=== PATIENT | male | born 2005 | race Two or more races ===

== ENCOUNTER 2024-10-09 15:35 | Inpatient (IN) | payer MEDICAID, OTHER ==
[~2024-10-09] VITALS: Ht 182.9 cm; Wt 75.1 kg
[2024-10-09 16:25] VITALS: PULSE 65; RESP 19; O2SAT 98
[2024-10-09 16:35] LABS: Hematocrit 45.8 % (41.0-53.0); Hemoglobin 15.5 g/dL (13.5-17.5); Mean Corpuscular Hemoglobin 29.6 pg (28.0-32.0); Mean Corpuscular Volume 87.3 fL (80.0-100.0); Nucleated Red Blood Cells % 0.0 %
[2024-10-09] MEDS: SODIUM CHLORIDE 0.9% 2,000 ML IV ONE (16:36)
[2024-10-09 16:38] LABS: Chloride 104 mmol/L (98-107); Potassium 3.9 mmol/L (3.5-5.1); Sodium 141 mmol/L (136-145)
[2024-10-09 16:39] LABS: Anion Gap 9 (5-15); Carbon Dioxide 28 mmol/L (20-31)
[2024-10-09 16:40] LABS: Calcium 9.2 mg/dL (8.7-10.4)
[2024-10-09 16:45] LABS: BUN/Creatinine Ratio 10.2 (10.0-20.0); Blood Urea Nitrogen 11 mg/dL (9-23); Glucose 101 mg/dL (74-106)
--- NOTE | 2024-10-09 17:27 | DVH ---
EXAM: CT HEAD WITHOUT CONTRAST INDICATION: s/p tonic clonic sz, now new focal absence sz TECHNIQUE: CT of the head without intravenous contrast. Radiation Dose Information: CT Dose: CTDI volume is 52.61 mGy. Dose-length product is 863.9 mGy*cm The dose indicators for CT are the volume Computed Tomography (CT) Dose Index (CTDIvol) and the Dose Length Product (DLP), and are measured in units of mGy and mGy-cm, respectively. These indicators are not patient dose, but values generated from the CT scanner acquisition factors. The report includes radiation exposure data for exposures received during this examination. COMPARISON: None FINDINGS: There is no evidence of acute intracranial hemorrhage, extra-axial collection, mass effect, midline s hift, herniation or hydrocephalus. The ventricles, sulci and cisterns are age appropriate. The covarrubias-white differentiation is intact. Patchy periventricular and subcortical white matter hypoattenuation is nonspecific but may be related to small vessel ischemic disease. The visualized paranasal sinuses and mastoid air cells are clear. The surrounding soft tissues and osseous structures are unremarkable. IMPRESSION: 1. No acute intracranial abnormality.
--- NOTE | 2024-10-09 17:31 | ED.PDOC ---
HPI (NEURO) HPI Comments 18 y/o M with history of tonic clonic seizures on Keppra, brought in by mother for c/c multiple seizure episodes. Patient's mother states over the past 2 days the patient began having episodes of staring in one direction during which time he is unresponsive. These episodes last less than a minute. Patient does not recall the episodes. This has happened several times over the past 2 days. The patient did have a tonic-clonic seizure yesterday morning, which is typical of his prior seizure activity. He states he has been compliant with his Keppra. He only complains of fatigue and a mild headache. He denies fever, recent illness, chest pain, vision changes or focal weakness. Patient was noted to have what appeared to be a brief absence seizure shortly after arrival in the ED. Chief Complaint: Seizure Time Seen by MD: 17:20 Reviewed Notes: Nurses Notes, Route Sales Representative Notes, Medications, Allergies Information Source: Patient, Emergency Med Personnel Mode of Arrival: Ambulatory Past Medical History PAST MEDICAL HISTORY: Seizures Surgical History: Denies all surgeries Social History Smoker: Non-Smoker Alcohol: Denies ETOH Use Drugs: Denies Drug Use Lives In: Home All Other Systems: Reviewed and Negative (Comprehensive systems review obtained and negative except for what is stated in the HPI.) Physical Exam General Appearance: No Apparent Distress HEENT: Other (Pupils and face symmetric. Moist mucous membranes.) Neck: Full Range of Motion, Normal Inspection Respiratory: Lungs Clear, No Accessory Muscle Use, No Respiratory Distress, Normal Breath Sounds Cardiovascular: No Edema, No JVD, Regular Rate/Rhythm Breast Exam: Deferred Gastrointestinal: Non Tender, Soft Genitalia: Deferred Pelvic: Deferred Rectal: Deferred Extremities: Normal inspection, Normal range of motion, Non-tender, No pedal edema Neurologic: Alert (Oriented x4), Normal Affect, Normal Mood, Other (No focal deficit) Cerebellar Function: NOT DONE Reflexes: NOT DONE Skin: Dry, Normal Color, Warm Lymphatic: NOT DONE Was a procedure done? Was a procedure done?: No Differential Diagnosis (SZ) Seizure: CVA/TIA, Hypocalcemia, Hypoglycemia, Hyponatremia, Idiopathic, Epile psy-Break Through, Epilepsy-Status Headache: Migraine, Epidural Hemorrhage, Intracerebral Hemorrhage, Subarachnoid Hemorrhage, Subdural Hemorrhage, Mass Lesion X-Ray, Labs, Meds, VS Vital Signs Date Time Temp Pulse Resp B/P (MAP) Pulse Ox O2 Delivery O2 Flow Rate FiO2 10/09/24 20:07 98.8 63 13 117/56 (76) 97 98.8 10/09/24 20:07 63 13 97 Room Air* 0 21 10/09/24 20:00 60 10/09/24 18:00 98.6 62 13 116/63 (80) 99 98.6 10/09/24 16:25 65 19 98 Room Air* 0 21 10/09/24 16:25 98.8 65 19 117/62 (80) 98 98.8 10/09/24 15:38 98.2 72 18 107/55 98 98.2 Lab Test 10/09/24 17:38 10/09/24 16:30 10/09/24 16:20 Range/Units Troponin I High Sensitivity 4 < 3 L </=54 ng/L Urine Color Light-yellow Yellow Urine Clarity Clear Clear Urine pH 6.5 5.0-9.0 Urine Specific [place] 1.022 1.001-1.035 Urine Protein Negative Negative Urine Ketones Negative Negative Urine Blood Negative Negative /uL Urine Nitrite Negative Negative Urine Bilirubin Negative Negative Urine Urobilinogen Normal Negative mg/dL Urine Leukocyte Esterase Negative Negative /uL Urine RBC None seen 0 - 3 /hpf Urine Microscopic WBC < 1 0-3 /HPF Urine Squamous Epithelial Cells None seen <5 /hpf Urine Bacteria None seen None Seen /hpf Urine Mucus Few None Seen Urine Glucose Normal Normal mg/dL White Blood Count 8.0 4.4-10.8 10^3/uL Red Blood Count 5.25 4.5-5.90 10^6/uL Hemoglobin 15.5 13.5-17.5 g/dL Hematocrit 45.8 41.0-53.0 % Mean Corpuscular Volume 87.3 80.0-100.0 fL Mean Corpuscular Hemoglobin 29.6 28.0-32.0 pg Mean Corpuscular Hemoglobin Concent 33.9 32.0-36.0 g/dL Red Cell Distribution Width 12.6 11.8-14.3 % Platelet Count 262 140-450 10^3/uL Mean Platelet Volume 8.2 6.9-10.8 fL Neutrophils (%) (Auto) 60.4 37.0-80.0 % Lymphocytes (%) (Auto) 30.5 10.0-50.0 % Monocytes (%) (Auto) 7.0 0.0-12.0 % Eosinophils (%) (Auto) 1.6 0.0-7.0 % Basophils (%) (Auto) 0.5 0.0-2.0 % Neutrophils # (Auto) 4.8 1.6-8.6 10 ^3/uL Lymphocytes # (Auto) 2.4 0.4-5.4 10 ^3/uL Monocytes # (Auto) 0.6 0-1.3 10 ^3/uL Eosinophils # (Auto) 0.1 0-0.8 10 ^3/uL Basophils # (Auto) 0 0-0.2 10 ^3/uL Nucleated Red Blood Cells 0.0 % Sodium Level 141 136-145 mmol/L Potassium Level 3.9 3.5-5.1 mmol/L Chloride Level 104 98-107 mmol/L Carbon Dioxide Level 28 20-31 mmol/L Anion Gap 9 5-15 Blood Urea Nitrogen 11 9-23 mg/dL Creatinine 1.08 0.700-1.30 mg/dL Glomerular Filtration Rate Calc 101 >90 mL/min BUN/Creatinine Ratio 10.2 10.0-20.0 Serum Glucose 101 74-106 mg/dL Calcium Level 9.2 8.7-10.4 mg/dL Levetiracetam Level Pending Current Medications Medications (Trade) Dose Ordered Sig/Lindy Route Start Time Stop Time Status Last Admin Sodium Chloride 2,000 ml @ 1,000 mls/hr Q2H ONCE IV 10/09/24 16:00 10/09/24 17:59 DC 10/09/24 16:36 Lorazepam (Ativan Inj) 1 mg ONCE ONCE IV 10/09/24 17:30 10/09/24 17:31 DC 10/09/24 17:57 [place] [id number] Ph: [phone] DIAGNOSTIC IMAGING Diagnostic Imaging Report : [id number] Signed PATIENT: EDOUARD GREENE ACCT: [id number] UNIT: [id number] : 2005 LOC: ER ROOM / BED: / AGE / SEX: 18 / M ADM STATUS: REG ER SERVICE [id number] ORDERING PHYSICIAN: RADHA HAMEED MD PROCEDURE(s): HWOCT - HEAD WITHOUT CONTRAST REASON: s/p tonic clonic sz, now new focal absence sz ORDER NUMBER(s): [id number], ACCESSION NUMBER(s): [id number] EXAM: CT HEAD WITHOUT CONTRAST INDICATION: s/p tonic clonic sz, now new focal absence sz TECHNIQUE: CT of the head without intravenous contrast. Radiation Dose Information: CT Dose: CTDI volume is 52.61 mGy. Dose-length product is 863.9 mGy*cm The dose indicators for CT are the volume Computed Tomography (CT) Dose Index (CTDIvol) and the Dose Length Product (DLP), and are measured in units of mGy and mGy-cm, respectively. These indicators are not patient dose, but values generated from the CT scanner acquisition factors. The report includes radiation exposure data for exposures received during this examination. COMPARISON: None FINDINGS: There is no evidence of acute intracranial hemorrhage, extra-axial collection, mass effect, midline shift, herniation or hydrocephalus. The ventricles, sulci and cisterns are age appropriate. The covarrubias-white differentiation is intact. Patchy periventricular and subcortical white matter hypoattenuation is nonspecific but may be related to small vessel ischemic disease. The visualized paranasal sinuses and mastoid air cells are clear. The surrounding soft tissues and osseous structures are unremarkable. IMPRESSION: 1. No acute intracranial abnormality. ATED BY: JAVED LANGLEY Jr., DO DICTATED DATE/TIME: 10/09/241724 SIGNED BY: JAVED LANGLEY Jr., SIGNED DATE/TIME: 10/09/241724 CC: X-Ray, Labs, Meds, VS Comment 18 y/o M with history of tonic clonic seizures on Keppra, brought in by mother for c/c multiple seizure episodes, including multiple episodes consistent with absence seizures, and one tonic-clonic seizure. Vitals remarkable for BP 107/55 Exam unremarkable Rhythm strip independently interpreted by me: Sinus rhythm, rate 82, no ectopy. CT head unremarkable CBC, basic metabolic panel, UA and troponins negative. Levetiracetam level pending Patient treated with the following in the ED: L 0.9 normal saline IV bolus, Ativan 1 mg IV On re-evaluation, patient is resting comfortably and neurologically intact. There has been no further seizure activity. Plan is to admit the patient for brain MRI or EEG and Neurology evaluation. Time of 1ST Reevaluation: 17:50 Reevaluation 1ST: Unchanged Patient Education/Counseling: Diagnosis, Treatment Family Education/Counseling: Diagnosis, Treatment Departure 1 Departure Time of Disposition: 20:54 Impression: Primary Impression: Recurrent seizures Disposition: ADMITTED INPATIENT Admit to: Tele Condition: Guarded Critical Care Note Critical Care Time?: No Stability Stability form required: No Heart Score Heart Score: Heart Score Response (Comments) Value History N/A 0 EKG N/A 0 Age N/A 0 Risk Factors N/A 0 Troponin N/A 0 Total 0 I personally scribed for RADHA HAMEED MD ([email or web address]) on 10/09/24 at 17:31. Electronically submitted by Kasi Lozano ([email or web address]). I personally scribed for RADHA HAMEED MD ([email or web address]) on 10/09/24 at 17:43. Electronically submitted by Kasi Lozano ([email or web address]). RADHA HAMEED MD Oct 09, 2024 17:31
[2024-10-09] MEDS: LORazepam 2MG/ML-1ML VIAL IV ONE (17:57)
[2024-10-09 18:56] LABS: Urine Protein, UAD Negative (Negative)
[2024-10-09 20:07] VITALS: PULSE 63; RESP 13; O2SAT 97
--- NOTE | 2024-10-09 21:14 | DVHHPRES ---
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 Per mother, at bedside, patient has been experiencing blank staring episodes for the past 2 days, innumerable, lasting for a minute or 2 only, preceded by blurry vision. Patient is not responsive during these episodes, eyes are open but starting, patient has never had these episodes in the past. He has been taking Keppra for his epilepsy disorder. Patient follows a neurologist at [facility], last seen 2 months back. Patient appears confused, likely postictal state, he is having brief episodes of staring in ER per mom and RN. Ativan IV was given in the ER. Patient reports diarrhea and some urinary discomfort but appears confused and UA negative. Per mom patient has not been sick or travel recently or had any sick contacts. He has been home for the past few days. Family recently moved to [place] and would like to establish care here. Past medical history:generalized tonic-clonic seizures/epileptic disorder for the past 5 years on Keppra Past surgical history: None Home medications: Keppra 1000 mg Neurologist, follows [place] Social history: Denies smoking/drinking/drug use, lives with mom. Review of Systems Review of Systems Patient appears confused, reports blurry vision, diarrhea, urinary discomfort Allergies: Coded Allergies: NO KNOWN ALLERGIES (Unverified , 10/09/24) Exam Vital Signs Vital Signs Date Time Temp Pulse Resp B/P (MAP) Pulse Ox O2 Delivery O2 Flow Rate FiO2 10/09/24 20:07 98.8 63 13 117/56 (76) 97 98.8 10/09/24 20:07 Room Air* 0 21 Exam Young adolescent male patient lying comfortably in the bed in ER, no acute distress, following commands but appears confused General: Well-built, afebrile, palor, mucosae are moist Cardiovascular: Regular S1 and S2. No murmurs, gallops or rubs. No JVD elevation. No pedal edema Respiratory: Normal B/L air entry on room air. Clear lung sounds on ausculta tion Abdomen: Soft, nontender, nondistended, normoactive bowel sounds, no rebound tenderness, no organomegaly, no masses Genitourinary: Deferred MSK/skin: Mobilizes 4 limbs. Skin is dry and warm Neurological: Equal strength in bilateral upper extremity, and lower extremity, no facial asymmetry seen. Vision intact. Sensations intact. Psych/Mental Status: A/Ox2, oriented to name and situation but not to place Labs/Xrays Labs Test 10/09/24 17:38 10/09/24 16:30 10/09/24 16:20 Range/Units Troponin I High Sensitivity 4 </=54 ng/L Urine Color Light-yellow Yellow Urine Clarity Clear Clear Urine pH 6.5 5.0-9.0 Urine Specific [place] 1.022 1.001-1.035 Urine Protein Negative Negative Urine Ketones Negative Negative Urine Blood Negative Negative /uL Urine Nitrite Negative Negative Urine Bilirubin Negative Negative Urine Urobilinogen Normal Negative mg/dL Urine Leukocyte Esterase Negative Negative /uL Urine RBC None seen 0 - 3 /hpf Urine Microscopic WBC < 1 0-3 /HPF Urine Squamous Epithelial Cells None seen <5 /hpf Urine Bacteria None seen None Seen /hpf Urine Mucus Few None Seen Urine Glucose Normal Normal mg/dL White Blood Count 8.0 4.4-10.8 10^3/uL Red Blood Count 5.25 4.5-5.90 10^6/uL Hemoglobin 15.5 13.5-17.5 g/dL Hematocrit 45.8 41.0-53.0 % Mean Corpuscular Volume 87.3 80.0-100.0 fL Mean Corpuscular Hemoglobin 29.6 28.0-32.0 pg Mean Corpuscular Hemoglobin Concent 33.9 32.0-36.0 g/dL Red Cell Distribution Width 12.6 11.8-14.3 % Platelet Count 262 140-450 10^3/uL Mean Platelet Volume 8.2 6.9-10.8 fL Neutrophils (%) (Auto) 60.4 37.0-80.0 % Lymphocytes (%) (Auto) 30.5 10.0-50.0 % Monocytes (%) (Auto) 7.0 0.0-12.0 % Eosinophils (%) (Auto) 1.6 0.0-7.0 % Basophils (%) (Auto) 0.5 0.0-2.0 % Neutrophils # (Auto) 4.8 1.6-8.6 10 ^3/uL Lymphocytes # (Auto) 2.4 0.4-5.4 10 ^3/uL Monocytes # (Auto) 0.6 0-1.3 10 ^3/uL Eosinophils # (Auto) 0.1 0-0.8 10 ^3/uL Basophils # (Auto) 0 0-0.2 10 ^3/uL Nucleated Red Blood Cells 0.0 % Sodium Level 141 136-145 mmol/L Potassium Level 3.9 3.5-5.1 mmol/L Chloride Level 104 98-107 mmol/L Carbon Dioxide Level 28 20-31 mmol/L Anion Gap 9 5-15 Blood Urea Nitrogen 11 9-23 mg/dL Creatinine 1.08 0.700-1.30 mg/dL Glomerular Filtration Rate Calc 101 >90 mL/min BUN/Creatinine Ratio 10.2 10.0-20.0 Serum Glucose 101 74-106 mg/dL Calcium Level 9.2 8.7-10.4 mg/dL SEPSIS Sepsis Screen Date sepsis recognized/suspect: Oct 09, 2024 Time Sepsis recognized/suspect: 2008 Recent Procedure: No On Antibiotic Therapy: No Respiratory Rate >20: No Heart Rate >90: No Temp<36 C (96.8 F) or >38.3 C: No SBP <90 or MAP <65 mmHG: No New Acute Mental Status Change: No Is the patient on CPAP, BIPAP,: No Physician Orders Electrocardigram (10/09/24 16:00) Levetiracetam (Keppra) (10/09/24 16:00) Seizure Precautions (10/09/24 ) Head Without Contrast (10/09/24 16:41) Electrocardigram (10/09/24 21:01) Electrocardigram (10/09/24 22:01) Electrocardigram (10/10/24 00:01) * Neurology Consult (10/09/24 21:12) Vital Signs Date Time Temp Pulse Resp B/P (MAP) Pulse Ox O2 Delivery O2 Flow Rate FiO2 10/09/24 20:07 98.8 63 13 117/56 (76) 97 98.8 10/09/24 20:07 63 13 97 Room Air* 0 21 10/09/24 20:00 60 10/09/24 18:00 98.6 62 13 116/63 (80) 99 98.6 10/09/24 16:25 65 19 98 Room Air* 0 21 10/09/24 16:25 98.8 65 19 117/62 (80) 98 98.8 10/09/24 15:38 98.2 72 18 107/55 98 98.2 Laboratory Tests Test 10/09/24 16:20 White Blood Count 8.0 10^3/uL (4.4-10.8) Medications Medications Dose Ordered Sig/Lindy Route Start Time Stop Time Status Last Admin Dose Admin Lorazepam 1 mg ONCE ONCE IV 10/09/24 17:30 10/09/24 17:31 DC 10/09/24 17:57 1 MG Sodium Chloride 2,000 ml @ 1,000 mls/hr Q2H ONCE IV 10/09/24 16:00 10/09/24 17:59 DC 10/09/24 16:36 1,000 MLS/HR Assessment/Plan Assessment/Plan Acute onset blank stares ? Atypical Absence seizures-new onset History of generalized tonic-clonic seizures on Keppra -[id number] ?? 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 Flores Plan discussed with: Other (Mother at bedside) My Orders Orders - DENITA RASHEED Procedure Category Date Status Time Electrocardigram EKG 10/09/24 Logged 21:01 Electrocardigram EKG 10/09/24 Logged 22:01 Electrocardigram EKG 10/10/24 Logged 00:01 * Neurology Consult CONS 10/09/24 Transmitted 21:12 Date of Service: Oct 09, 2024 Billing Provider: DELORES FLORES MD Common Visit Codes: [id number] INP/OBS CARE (HIGH) DENITA RASHEED Oct 09, 2024 21:14
[2024-10-09 21:32] LABS: Alanine Aminotransferase 15 U/L (7-40); Albumin 4.3 g/dL (3.2-4.8); Alkaline Phosphatase 89 U/L (46-116); Total Protein 6.6 g/dL (5.7-8.2)
[2024-10-09 21:34] LABS: Bilirubin, Total 0.3 mg/dL (0.2-1.0)
[2024-10-09 21:48] LABS: Bilirubin, Direct < 0.1 mg/dL (<0.3)
[2024-10-09 21:55] LABS: Amphetamine Screen, Urine Neg (NEGATIVE); Barbiturate Scree,Urine Neg (NEGATIVE); Benzodiazephine Screen, Urine Neg (NEGATIVE); Cocaine Screen, Urine Neg (NEGATIVE)
[2024-10-09 21:56] LABS: Magnesium 1.9 mg/dL (1.6-2.6)
[2024-10-09 22:00] LABS: COVID19 ANTIGEN SOFIA FIA NEGATIVE (NEGATIVE)
[2024-10-09 22:01] LABS: Cannabinoid Screen, Urine Neg (NEGATIVE); Opiate Scree,Urine Neg (NEGATIVE); Phencyclidine Screen, Urine Neg (NEGATIVE)
--- NOTE | 2024-10-09 22:57 | DVHINCON2 ---
Date of service: Oct 09, [address] Mary Reason for Consultation Absence seizure, new onset History of Present Illness Mr. Chambers is a 18 years old right-handed gentleman otherwise healthy, he was brought to the [facility] on 10/09/24 with a chief complaint of seizure activity. At this time, he is alert and fully oriented, but he has no recollection about his seizure symptoms, the history obtained from his mother who was in the room with him Partial complex seizure Onset: 10/08/2024 Duration: 20-30 seconds Frequency: Numerous times daily Cause of condition: Unknown Symptoms: A witnessed a typical spell, in that he suddenly stopped responding to his surroundings, eyes and head turned to the right side, the event was about 20-30 seconds, he came out not remember what we were talking about, but in the few sec, the able to resume normal conversation. 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 since beginning of 09/2024 due to side effects Aura: Blurred vision, flashing lights Grand mal seizure Onset: 2019 Frequency: One day/month, but he may have several in the role Duration: Possible cause the condition: Unknown Symptoms: Episodic event where he has realized convulsion, unconsciousness, times associated with oral trauma, incontinence. More than 95% event happened when he is asleep Previous evaluation: He has seen neurologist, he had EEG and MRI brain scan previously Current treatment: Keppra 1000 mg q.d. Previous treatment: Keppra 2000 mg q.d. caused mood problems Lamotrigine, Vimpat, topiramate, Depakote, Dilantin did not help UDS, 10/06/2024: Negative Plasma alcohol, 10/09/2024: <3 Keppra, 10/06/2024: Urinalysis, 10/06/2024: Unremarkable CBC, 10/09/2024: Unremarkable CMP, 10/09/2024: Unremarkable CT head, 09/18/2024: No acute intracranial abnormality Past Medical History No major medical problems Past Surgical History No surgeries Family History Mother reports no major medical problems Social History He has no history of tobacco smoking, drug or alcohol abuse. He does not drive Allergies: Coded Allergies: NO KNOWN ALLERGIES (Unverified , 10/09/24) Current Medications Current Medications Medications (Trade) Dose Ordered Sig/Lindy Route PRN Reason Start Time Stop Time Status Last Admin Lorazepam (Ativan Inj) 1 mg Q5MINP PRN IV SEIZURES 10/09/24 22:15 Multivitamins (Mvi Tab) 1 tab DAILY PO 10/10/24 10:00 Review of Systems As above, the other systems are negative Vital Signs Vital Signs Date Time Temp Pulse Resp B/P (MAP) Pulse Ox O2 Delivery O2 Flow Rate FiO2 10/09/24 22:00 60 13 119/77 (91) 98 10/09/24 20:07 98.8 98.8 10/09/24 20:07 Room Air* 0 21 Physical Exam GENERAL EXAM: General: the patient is well developed and nourished. No acute distress. HEENT: Normocephalic, neck is supple, no carotid bruits. No mass. RESPIRATORY: Normal respiratory effort with symmetrical lung expansion. Lungs clear to auscultation. CARDIOVASCULAR: Regular rate and rhythm with no murmurs. S1, S2. ABDOMEN: Soft, nontender, normal bowel sound NEUROLOGICAL: MENTAL STATUS: Awake and alert. Oriented to person, place, time and general circumstances. Able to give personal history. SPEECH, LANGUAGE, HIGHER CORTICAL FUNCTION: no aphasia or dysathria. CRANIAL NERVES: #2: Intact visual cardona to confrontation. The optic discs were sharp. #3,4,6: Pupils are equal, round and reactive. EOMs full and conjugate. No nystagmus. #5: Facial sensation intact in all three divisions bilaterally. Mandibular strength intact. #7: Facial muscles symmetrical and strength intact. #8: Hearing grossly normal to voice. #9,10: Uvula and soft palate rise in the midline. Swallow and voice are normal. #11: Trapezius and sternomastoid strength intact bilaterally. #12: Tongue midline. No fasciculations or atrophy. SENSATION: Sensation to touch and pinprick is normal. MOTOR: Normal tone in the upper and lower extremity. Normal muscle bulk. No fasciculations. No abnormal movements or posturing. Muscle strength of the major groups in the upper extremities is 5/5. Muscle strength of the major groups in the lower extremities is 5/5. REFLEXES: Deep tendon reflexes normal and symmetrical. No pathological reflexes. CEREBELLAR/COORDINATION: Finger to nose and heel to peterson are normal bilaterally. GAIT/STATION: deferred. Labs/Diagnostic Data Labs Test 10/09/24 22:25 10/09/24 21:30 10/09/24 17:38 10/09/24 16:30 Range/Units Plasma/Serum Blood Alcohol < 3.0 <10 mg/dL Influenza Type A Antigen Negative Negative Influenza Type B Antigen Negative Negative SARS-CoV-2 Antigen (Rapid) Negative NEGATIVE Troponin I High Sensitivity 4 </=54 ng/L Urine Color Light-yellow Yellow Urine Clarity Clear Clear Urine pH 6.5 5.0-9.0 Urine Specific [place] 1.022 1.001-1.035 Urine Protein Negative Negative Urine Ketones Negative Negative Urine Blood Negative Negative /uL Urine Nitrite Negative Negative Urine Bilirubin Negative Negative Urine Urobilinogen Normal Negative mg/dL Urine Leukocyte Esterase Negative Negative /uL Urine RBC None seen 0 - 3 /hpf Urine Microscopic WBC < 1 0-3 /HPF Urine Squamous Epithelial Cells None seen <5 /hpf Urine Bacteria None seen None Seen /hpf Urine Mucus Few None Seen Urine Glucose Normal Normal mg/dL Urine Opiates Screen Neg NEGATIVE Urine Fentanyl Screen Neg NEGATIVE Urine Barbiturates Screen Neg NEGATIVE Urine Phencyclidine Screen Neg NEGATIVE Urine Amphetamines Screen Neg NEGATIVE Urine Benzodiazepines Screen Neg NEGATIVE Urine Cocaine Screen Neg NEGATIVE Urine Cannabinoids Screen Neg NEGATIVE Test 10/09/24 16:20 Range/Units White Blood Count 8.0 4.4-10.8 10^3/uL Red Blood Count 5.25 4.5-5.90 10^6/uL Hemoglobin 15.5 13.5-17.5 g/dL Hematocrit 45.8 41.0-53.0 % Mean Corpuscular Volume 87.3 80.0-100.0 fL Mean Corpuscular Hemoglobin 29.6 28.0-32.0 pg Mean Corpuscular Hemoglobin Concent 33.9 32.0-36.0 g/dL Red Cell Distribution Width 12.6 11.8-14.3 % Platelet Count 262 140-450 10^3/uL Mean Platelet Volume 8.2 6.9-10.8 fL Neutrophils (%) (Auto) 60.4 37.0-80.0 % Lymphocytes (%) (Auto) 30.5 10.0-50.0 % Monocytes (%) (Auto) 7.0 0.0-12.0 % Eosinophils (%) (Auto) 1.6 0.0-7.0 % Basophils (%) (Auto) 0.5 0.0-2.0 % Neutrophils # (Auto) 4.8 1.6-8.6 10 ^3/uL Lymphocytes # (Auto) 2.4 0.4-5.4 10 ^3/uL Monocytes # (Auto) 0.6 0-1.3 10 ^3/uL Eosinophils # (Auto) 0.1 0-0.8 10 ^3/uL Basophils # (Auto) 0 0-0.2 10 ^3/uL Nucleated Red Blood Cells 0.0 % Sodium Level 141 136-145 mmol/L Potassium Level 3.9 3.5-5.1 mmol/L Chloride Level 104 98-107 mmol/L Carbon Dioxide Level 28 20-31 mmol/L Anion Gap 9 5-15 Blood Urea Nitrogen 11 9-23 mg/dL Creatinine 1.08 0.700-1.30 mg/dL Glomerular Filtration Rate Calc 101 >90 mL/min BUN/Creatinine Ratio 10.2 10.0-20.0 Serum Glucose 101 74-106 mg/dL Calcium Level 9.2 8.7-10.4 mg/dL Phosphorus Level 3.9 2.4-5.1 mg/dL Magnesium Level 1.9 1.6-2.6 mg/dL Total Bilirubin 0.3 0.2-1.0 mg/dL Direct Bilirubin < 0.1 <0.3 mg/dL Aspartate Amino Transferase (AST) 14 13-40 U/L Alanine Aminotransferase (ALT) 15 7-40 U/L Alkaline Phosphatase 89 46-116 U/L Total Protein 6.6 5.7-8.2 g/dL Albumin 4.3 3.2-4.8 g/dL Assessment Grand mal seizure Partial complex seizure Keppra side effects Plan/Recommendation Monitoring Supportive treatment Telemetry EEG Trial of Trileptal 300 mg b.i.d. Keppra 1000 mg q.d., wean off later Ativan for seizure breakthrough Common seizure triggers discussed The patient does not drive Follow up with me on discharge Prognosis: Poor This medical document was created using an electronic medical record system with [employer] dictation system. Although this document has been carefully reviewed, there may still be some phonetic and typographical errors. These areas are purely typographical due to imperfections of the software programs, and do not reflect any compromise in the patient's medical care. Plan discussed with: Patient, Other HIGINIO DE LA VEGA MD Oct 09, 2024 22:57
[2024-10-10] VITALS (7 sets, daily range): BP systolic 111–117; BP diastolic 72–98; PULSE 51–78; RESP 16–19; TEMP 97.6–98.3; O2SAT 96–99
[2024-10-10] MEDS: LORazepam 2MG/ML-1ML VIAL IV PRN (07:34)
--- NOTE | 2024-10-10 08:33 | DVHPNRES ---
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 Per mother, at bedside, patient has been experiencing blank staring episodes for the past 2 days, innumerable, lasting for a minute or 2 only, preceded by blurry vision. Patient is not responsive during these episodes, eyes are open but starting, patient has never had these episodes in the past. He has been taking Keppra for his epilepsy disorder. Patient follows a neurologist at [facility], last seen 2 months back. Patient appears confused, likely postictal state, he is having brief episodes of staring in ER per mom and RN. Ativan IV was given in the ER. Patient reports diarrhea and some urinary discomfort but appears confused and UA negative. Per mom patient has not been sick or travel recently or had any sick contacts. He has been home for the past few days. Family recently moved to [place] and would like to establish care here. 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 Patient seen and examined at the bedside. Patient is feeling better since admission. The still complaining of headache. Objective vital signs Vital Sign Date Time Temp Pulse Resp B/P (MAP) Pulse Ox O2 Delivery O2 Flow Rate FiO2 10/10/24 06:00 56 14 102/64 (77) 98 10/09/24 20:07 98.8 98.8 10/09/24 20:07 Room Air* 0 21 Total Intake and Output 10/09/24 10/09/24 10/10/24 15:00 23:00 07:00 Intake Total 2000 ml Balance 2000 ml medications Current Medications Medications Dose Ordered Sig/Lindy Route Start Time Stop Time Status Last Admin Dose Admin Lorazepam 1 mg Q5MINP PRN IV 10/09/24 22:15 8/24/25 07:34 1 MG Multivitamins 1 tab DAILY PO 10/10/24 10:00 Levetiracetam 500 mg BID PO 10/10/24 10:00 Oxcarbazepine 300 mg Q12HR PO 10/10/24 10:00 Examination General Appearance: Alert, Oriented X3, Cooperative, No acute distress HEENT: Atraumatic, PERRLA, EOMI, Mucous membrane moist/pink Respiratory: Clear to auscultation, Normal air movement Cardiovascular: Regular rate, Normal S1, Normal S2, No murmurs, no chest wall tenderness Abdominal: Normal bowel sounds, Soft, No tenderness, No hepatospenomegaly, No masses Extremities: No clubbing, No cyanosis, No edema, Normal pulses, No tenderness/swelling Skin: No rashes, No breakdown, No significant lesion Neuro: Normal gait, Normal speech, Strength at 5/5 X4 ext, Normal tone, Sensation intact, Cranial nerves 3-12 NL, Reflexes 2+ Psych/Mental Status: Mental status NL, Mood NL laboratory and microbiology Laboratory Tests 10/09/24 16:20 Test 10/09/24 16:20 Range/Units Serum Glucose 101 74-106 mg/dL Problem List/Assessment/Plan Problem List/Assessment/Plan Acute onset blank stares ? Atypical Absence seizures-new onset History of generalized tonic-clonic seizures on Keppra -[id number] ?? 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 * Neurology consulted, recommended Trileptal and EEG * Seizure precaution DIET: Regular diet DVT PROPHYLAXIS: Lovenox CODE STATUS: Goal of care discussed for more than 18 minutes, full code DISPOSITION: Telemetry Patient's status and plan discussed with the patient. Case discussed with Dr. Gentile. Plan discussed with: Patient, Other (RN) Date of Service: Oct 10, 2024 Billing Provider: DONTRELL ZIMMERMAN MD Common Visit Codes: [id number] INP/OBS CARE(HIGH) KEVEN BERUMEN RESDIENT Oct 10, 2024 08:33 DONTRELL ZIMMERMAN MD Oct 10, 2024 23:05
[2024-10-10] MEDS: levETIRAcetam 500 MG TAB PO SCH (09:49)
[2024-10-10] MEDS: MULTIPLE VITAMIN TAB PO SCH (09:49)
[2024-10-10] MEDS: ENOXAPARIN SOD 40 MG/0.4 ML SYRINGE SC SCH (09:50)
--- NOTE | 2024-10-10 19:25 | ECG ---
[facility] Test Date: 2024-10-09 Test Time: 21:13:41 Pat Name: EDOUARD GREENE Department: [facility] ED Patient ID: [facility]-[id number] Room: 0222T B Gender: M Talent Development Coordinator: KEYONA : 2005 Requested By: RADHA MOSS Order Number: [id number] Reading MD: Mack Fu Measurements Intervals [place] Rate: 60 P: 40 TN: 145 QRS: 65 QRSD: 98 T: 51 QT: 439 QTc: 439 Interpretive Statements Sinus rhythm Probable left ventricular hypertrophy Electronically Signed On 10-13-2024 18:35:44 PDT by Mack Fu Please click the below link to view image of tracing.
[2024-10-11] VITALS (8 sets, daily range): BP systolic 96–120; BP diastolic 50–82; PULSE 63–89; RESP 18–22; TEMP 97.7–98.7; O2SAT 94–100
--- NOTE | 2024-10-11 11:57 | DVHPN2 ---
Reviewed: Care Plan, Labs, Medications, Previous Orders, Radiology Changes from previous H/P or p: No Changes Objective Vitals Vital Signs Date Time Temp Pulse Resp B/P (MAP) Pulse Ox O2 Delivery O2 Flow Rate FiO2 10/11/24 09:00 97.7 64 22 113/64 (80) 94 97.7 10/11/24 08:14 Room Air* 0 21 Intake/Output Intake and Output 10/11/24 07:00 Intake Total 0 ml Balance 0 ml Intake Oral 0 ml # Voids 4 Medications Current Medications Medications Dose Ordered Sig/Lindy Route Start Time Stop Time Status Last Admin Dose Admin Lorazepam 1 mg Q5MINP PRN IV 10/09/24 22:15 10/10/24 18:09 1 MG Multivitamins 1 tab DAILY PO 10/10/24 10:00 10/11/24 09:43 1 TAB Levetiracetam 500 mg BID PO 10/10/24 10:00 10/11/24 09:43 500 MG Oxcarbazepine 300 mg Q12HR PO 10/10/24 10:00 10/11/24 09:43 300 MG Enoxaparin Sodium 40 mg DAILY SC 10/10/24 10:00 10/10/24 09:50 40 MG Laboratory Results Laboratory Tests 10/09/24 16:20 Urinalysis Test 10/09/24 16:30 Urine Color Light-yellow (Yellow) Urine Clarity Clear (Clear) Urine pH 6.5 (5.0-9.0) Urine Specific [place] 1.022 (1.001-1.035) Urine Protein Negative (Negative) Urine Ketones Negative (Negative) Urine Blood Negative /uL (Negative) Urine Nitrite Negative (Negative) Urine Bilirubin Negative (Negative) Urine Urobilinogen Normal mg/dL (Negative) Urine Leukocyte Esterase Negative /uL (Negative) Urine RBC None seen /hpf (0 - 3) Urine Microscopic WBC < 1 /HPF (0-3) Urine Squamous Epithelial Cells None seen /hpf (<5) Urine Bacteria None seen /hpf (None Seen) Urine Mucus Few (None Seen) Urine Glucose Normal mg/dL (Normal) Assessment/Plan Assessment/Plan Grand mal seizure Partial complex seizure Keppra side effects Continue current management. Will waiting for EEG Trial of Trileptal 300 mg b.i.d. Keppra 1000 mg q.d., wean off later per neurologist. Ativan for seizure breakthrough Appreciate Dr Siddiqui in put Plan discussed with: Patient, Other (mother) Date of Service: Oct 11, 2024 Billing Provider: DONTRELL ZIMMERMAN MD Common Visit Codes: [id number] INP/OBS CARE(HIGH) DONTRELL ZIMMERMAN MD Oct 11, 2024 11:57
--- NOTE | 2024-10-11 21:27 | DVHPN2 ---
Progress Note - Dictate Date Seen: Oct 11, 2024 Medical Necessity Reason Pt with a Central, PICC or Fol: No Subjective Mr. Chambers is a 18 years old right-handed gentleman otherwise healthy, he was brought to the [facility] on 10/09/24 with a chief complaint of seizure activity. I have seen and examined the patient, I have discussed with his nurse, he is doing fine, no new company, no new symptoms or symptoms suggestive medication ceftriaxone UDS, 10/06/2024: Negative Plasma alcohol, 10/09/2024: <3 Keppra, 10/06/2024: Urinalysis, 10/06/2024: Unremarkable CBC, 10/09/2024: Unremarkable CMP, 10/09/2024: Unremarkable CT head, 09/18/2024: No acute intracranial abnormality vital signs Vital Sign Date Time Temp Pulse Resp B/P (MAP) Pulse Ox O2 Delivery O2 Flow Rate FiO2 10/11/24 17:30 97.7 89 19 113/60 (77) 99 97.7 10/11/24 08:14 Room Air* 0 21 Total Intake and Output 10/10/24 10/10/24 10/11/24 15:00 23:00 07:00 Intake Total 0 ml 0 ml Balance 0 ml 0 ml medications Current Medications Medications Dose Ordered Sig/Lindy Route Start Time Stop Time Status Last Admin Dose Admin Lorazepam 1 mg Q5MINP PRN IV 10/09/24 22:15 10/10/24 18:09 1 MG Multivitamins 1 tab DAILY PO 10/10/24 10:00 10/11/24 09:43 1 TAB Levetiracetam 500 mg BID PO 10/10/24 10:00 10/11/24 09:43 500 MG Oxcarbazepine 300 mg Q12HR PO 10/10/24 10:00 10/11/24 09:43 300 MG Enoxaparin Sodium 40 mg DAILY SC 10/10/24 10:00 10/10/24 09:50 40 MG objective General: the patient is well developed and nourished. No acute distress. MENTAL STATUS: Awake and alert. Oriented to person, place, time and general circumstances. Able to give personal history. SPEECH, LANGUAGE, HIGHER CORTICAL FUNCTION: no aphasia or dysathria. CRANIAL NERVES: Pupils are equal, round and reactive. EOMs full and conjugate. No nystagmus. Facial sensation intact in all three divisions bilaterally. Mandibular strength intact. Facial muscles symmetrical and strength intact. Tongue midline. No fasciculations or atrophy. SENSATION: Sensation to touch and pinprick is normal. MOTOR: Normal tone in the upper and lower extremity. Normal muscle bulk. No fasciculations. No abnormal movements or posturing. Muscle strength of the major groups in the extremities is 5/5. REFLEXES: Deep tendon reflexes normal and symmetrical. No pathological reflexes. CEREBELLAR/COORDINATION: Finger to nose and heel to peterson are normal bilaterally. GAIT/STATION: deferred laboratory and microbiology Laboratory Tests 10/09/24 16:20 Test 10/09/24 16:20 Range/Units Serum Glucose 101 74-106 mg/dL Problem List Grand mal seizure Partial complex seizure Keppra side effects Assessment/Plan Monitoring Supportive treatment Telemetry EEG Trileptal 300 mg b.i.d. Keppra 750 mg q.d., wean off later Ativan for seizure breakthrough Common seizure triggers discussed The patient does not drive Follow up with me on discharge This medical document was created using an electronic medical record system with [employer] dictation system. Although this document has been carefully reviewed, there may still be some phonetic and typographical errors. These areas are purely typographical due to imperfections of the software programs, and do not reflect any compromise in the patient's medical care. Prognosis poor Plan discussed with: Patient, Other HIGINIO DE LA VEGA MD Oct 11, 2024 21:27
[2024-10-12 01:00] VITALS: BP 118/74; PULSE 53; RESP 17; TEMP 98.4; O2SAT 98
[2024-10-12 05:00] VITALS: BP 118/54; PULSE 67; RESP 18; TEMP 98.4; O2SAT 97
[2024-10-12 08:00] VITALS: PULSE 69; PULSE 76; RESP 18; O2SAT 96
[2024-10-12 09:00] VITALS: BP 120/77; PULSE 63; RESP 16; TEMP 97.7; O2SAT 96
[2024-10-12] MEDS: levETIRAcetam 500 MG TAB PO SCH (09:19)
--- NOTE | 2024-10-12 11:44 | DVHPN2 ---
Reviewed: Care Plan, Labs, Medications, Previous Orders, Radiology Objective Vitals Vital Signs Date Time Temp Pulse Resp B/P (MAP) Pulse Ox O2 Delivery O2 Flow Rate FiO2 10/12/24 09:00 97.7 63 16 120/77 (91) 96 97.7 10/11/24 20:00 Room Air* 0 21 Intake/Output Intake and Output 10/12/24 07:00 Intake Total 850 ml Balance 850 ml Intake Oral 850 ml # Voids 6 Medications Current Medications Medications Dose Ordered Sig/Lindy Route Start Time Stop Time Status Last Admin Dose Admin Lorazepam 1 mg Q5MINP PRN IV 10/09/24 22:15 10/10/24 18:09 1 MG Multivitamins 1 tab DAILY PO 10/10/24 10:00 10/12/24 09:19 1 TAB Oxcarbazepine 300 mg Q12HR PO 10/10/24 10:00 10/12/24 09:19 300 MG Enoxaparin Sodium 40 mg DAILY SC 10/10/24 10:00 10/10/24 09:50 40 MG Levetiracetam 250 mg BID PO 10/12/24 10:00 10/12/24 09:19 250 MG Laboratory Results Laboratory Tests 10/09/24 16:20 Urinalysis Test 10/09/24 16:30 Urine Color Light-yellow (Yellow) Urine Clarity Clear (Clear) Urine pH 6.5 (5.0-9.0) Urine Specific [place] 1.022 (1.001-1.035) Urine Protein Negative (Negative) Urine Ketones Negative (Negative) Urine Blood Negative /uL (Negative) Urine Nitrite Negative (Negative) Urine Bilirubin Negative (Negative) Urine Urobilinogen Normal mg/dL (Negative) Urine Leukocyte Esterase Negative /uL (Negative) Urine RBC None seen /hpf (0 - 3) Urine Microscopic WBC < 1 /HPF (0-3) Urine Squamous Epithelial Cells None seen /hpf (<5) Urine Bacteria None seen /hpf (None Seen) Urine Mucus Few (None Seen) Urine Glucose Normal mg/dL (Normal) Assessment/Plan Assessment/Plan Grand mal seizure Partial complex seizure Keppra side effects Continue current management. Will waiting for EEG Trial of Trileptal 300 mg b.i.d. Keppra 1000 mg q.d., wean off later per neurologist. Ativan for seizure breakthrough Appreciate Dr Siddiqui in DONTRELL Watts MD Oct 12, 2024 11:44
[2024-10-12] MEDS ORDERED: OXCA600T3 PO (12:37)
[2024-10-12] MEDS ORDERED: KEP500T PO (12:37)
[2024-10-12] MEDS ORDERED: LORA-1121 PO (12:40)
--- NOTE | 2024-10-12 12:42 | DVHDS2 ---
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 Partial complex seizure Keppra side effects Labs/Diagnostic Data: Laboratory Results Test 10/09/24 22:25 10/09/24 21:30 10/09/24 17:38 10/09/24 16:30 Plasma/Serum Blood Alcohol < 3.0 mg/dL (<10) Influenza Type A Antigen Negative (Negative) Influenza Type B Antigen Negative (Negative) SARS-CoV-2 Antigen (Rapid) Negative (NEGATIVE) Troponin I High Sensitivity 4 ng/L (</=54) Urine Color Light-yellow (Yellow) Urine Clarity Clear (Clear) Urine pH 6.5 (5.0-9.0) Urine Specific [place] 1.022 (1.001-1.035) Urine Protein Negative (Negative) Urine Ketones Negative (Negative) Urine Blood Negative /uL (Negative) Urine Nitrite Negative (Negative) Urine Bilirubin Negative (Negative) Urine Urobilinogen Normal mg/dL (Negative) Urine Leukocyte Esterase Negative /uL (Negative) Urine RBC None seen /hpf (0 - 3) Urine Microscopic WBC < 1 /HPF (0-3) Urine Squamous Epithelial Cells None seen /hpf (<5) Urine Bacteria None seen /hpf (None Seen) Urine Mucus Few (None Seen) Urine Glucose Normal mg/dL (Normal) Urine Opiates Screen Neg (NEGATIVE) Urine Fentanyl Screen Neg (NEGATIVE) Urine Barbiturates Screen Neg (NEGATIVE) Urine Phencyclidine Screen Neg (NEGATIVE) Urine Amphetamines Screen Neg (NEGATIVE) Urine Benzodiazepines Screen Neg (NEGATIVE) Urine Cocaine Screen Neg (NEGATIVE) Urine Cannabinoids Screen Neg (NEGATIVE) Test 10/09/24 16:20 White Blood Count 8.0 10^3/uL (4.4-10.8) Red Blood Count 5.25 10^6/uL (4.5-5.90) Hemoglobin 15.5 g/dL (13.5-17.5) Hematocrit 45.8 % (41.0-53.0) Mean Corpuscular Volume 87.3 fL (80.0-100.0) Mean Corpuscular Hemoglobin 29.6 pg (28.0-32.0) Mean Corpuscular Hemoglobin Concent 33.9 g/dL (32.0-36.0) Red Cell Distribution Width 12.6 % (11.8-14.3) Platelet Count 262 10^3/uL (140-450) Mean Platelet Volume 8.2 fL (6.9-10.8) Neutrophils (%) (Auto) 60.4 % (37.0-80.0) Lymphocytes (%) (Auto) 30.5 % (10.0-50.0) Monocytes (%) (Auto) 7.0 % (0.0-12.0) Eosinophils (%) (Auto) 1.6 % (0.0-7.0) Basophils (%) (Auto) 0.5 % (0.0-2.0) Neutrophils # (Auto) 4.8 10 ^3/uL (1.6-8.6) Lymphocytes # (Auto) 2.4 10 ^3/uL (0.4-5.4) Monocytes # (Auto) 0.6 10 ^3/uL (0-1.3) Eosinophils # (Auto) 0.1 10 ^3/uL (0-0.8) Basophils # (Auto) 0 10 ^3/uL (0-0.2) Nucleated Red Blood Cells 0.0 % Sodium Level 141 mmol/L (136-145) Potassium Level 3.9 mmol/L (3.5-5.1) Chloride Level 104 mmol/L (98-107) Carbon Dioxide Level 28 mmol/L (20-31) Anion Gap 9 (5-15) Blood Urea Nitrogen 11 mg/dL (9-23) Creatinine 1.08 mg/dL (0.700-1.30) Glomerular Filtration Rate Calc 101 mL/min (>90) BUN/Creatinine Ratio 10.2 (10.0-20.0) Serum Glucose 101 mg/dL (74-106) Calcium Level 9.2 mg/dL (8.7-10.4) Phosphorus Level 3.9 mg/dL (2.4-5.1) Magnesium Level 1.9 mg/dL (1.6-2.6) Total Bilirubin 0.3 mg/dL (0.2-1.0) Direct Bilirubin < 0.1 mg/dL (<0.3) Aspartate Amino Transferase (AST) 14 U/L (13-40) Alanine Aminotransferase (ALT) 15 U/L (7-40) Alkaline Phosphatase 89 U/L (46-116) Total Protein 6.6 g/dL (5.7-8.2) Albumin 4.3 g/dL (3.2-4.8) Levetiracetam Level <2.0 ug/mL (10.0-40.0) Other Laboratory Tests 10/09/24 16:20 Brief Hx & Hospital Course: This is a 18 years old male with past medical history generalized clonic tonic seizure, epileptic for five years come to emergency department because of blank stares and altered mental status for two days. The patient had been compliant and take Keppra for his epilepsy. The patient was admitted. The patient was very confused and postictal. The patient was given Ativan as needed for seizure. The patient also restarted on Keppra. Neurologist, Dr. Siddiqui see the patient. His impression is the patient had the side effects of Keppra. He recommend Trileptal 300 mg b.i.d.,Keppra 750 mg q.d., wean off later, Ativan for seizure breakthrough,Common seizure triggers discussed. Head-CT was normal. Dr. Siddiqui cleared the patient to be discharged and we will follow up as outpatient. The patient had no more seizure activity in the hospital. He become alert, awake. Physical exam: HEENT: Normocephalic atraumatic pupils equal react to light and accommodation. Extraocular muscles intact, conjunctiva pink, oropharynx moist, no thrush, no exudate. Lymphatic: No lymphadenopathy Cardiovascular exam: S1, S2 was heard. No murmurs, rubs, gallops Lung: Clear on auscultation bilaterally, no wheeze, rale, rhonchi. GI: Abdominal soft, nondistended, nontenderness, positive bowel sounds. Extremity: No crepitus, cyanosis, edema. Pedal pulses present bilateral. Full range of motion. Skin: Normal turgor, no rash. Psych: Alert, oriented x3. Neurology: No focal deficits, cranial nerve II to XII grossly intact. This medical document was created using an electronic medical record system with [employer] direct computerized dictation system. Although this document has been carefully reviewed, there may still be some phonetic and typographical errors. These areas are purely typographical due to imperfections of the software programs, and do not reflect any compromise in the patient's medical care. 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 Patient was counseled about treatment plan, medications, possible side effects, patientverbalized understanding. All questions were answered to the best of my ability. This discharge took greater then 30 minutes in planning, reviewing documentation, counseling the patient, and discussing with other team members." ASSESSMENT ASSESSMENT Assessment recurrent seizure Date of Service: Oct 12, 2024 Billing Provider: DONTRELL ZIMMERMAN MD Common Visit Codes: 90655-GLF/OBS DISCH DAY >30min DONTRELL ZIMMERMAN MD Oct 12, 2024 12:41
[2024-10-12 14:04] VITALS: BP 120/77; PULSE 63; RESP 16; TEMP 98.2; O2SAT 96
== END 2024-10-12 14:39 | disposition home or self-care (01) | DRG 53 ==
LOC: ER 15:35 → OVERFLOW 21:13 → TELE-CENTR 10-10 13:52
PROVIDERS: ADMIT Internal Medicine; ATTEND Internal Medicine
DX: G40.209 Localization-related (focal) (partial) symptomatic epilepsy and epileptic syndromes with complex partial seizures, not intractable, without status epilepticus (principal); G40.409 Other generalized epilepsy and epileptic syndromes, not intractable, without status epilepticus; Z20.822 Contact with and (suspected) exposure to COVID-19
CPT/HCPCS: 36415; 70450; 80048; 80076; 80307; 80320; 81001; 82542; 83735; 84100; 84484; 85025; 87426; 87804; 93005; 95819; 96361; 96374; G0378

== ENCOUNTER 2024-11-13 00:30 | Emergency (ER) | payer MEDICAID ==
[~2024-11-13] VITALS: Ht 182.9 cm; Wt 77.2 kg
[~2024-11-13 00:30] MED LIST: KEP500T PO; LORA-1121 PO; OXCA600T3 PO
--- NOTE | 2024-11-13 01:31 | DVH ---
EXAMINATION: XY L RIB X RAY INDICATION: rib px COMPARISON: None TECHNIQUE: Frontal view of the chest and 3 views of the left ribs history FINDINGS: No focal consolidation, pleural effusion or significant pneumothorax. Normal cardiomediastinal silhou ette. No displaced left rib fracture. Chronic appearing fracture of the left 6th rib posterolateral. IMPRESSION: More acute abnormality.
--- NOTE | 2024-11-13 01:48 | ED.PDOC ---
Back pain HPI HPI Comments s PT CAME TO THE ER WITH CC OF RIB PAIN X 3DAYS, PT STATED THAT HE WAS WORKING OUT AT THE GYM WHEN THE PAIN STARTED. PT IS A&OX4 RR EVEN AND REGULAR NO DISTRESS NOTED AT THIS TIME. PT DENIES N/V/D CP PT REPORT SOB. DENIES NAVEEN, FEVER OR CHILLS Chief Complaint: Rib Pain Time Seen by MD: 00:51 Reviewed Notes: Nurses Notes, Medications, Allergies Allergies: Coded Allergies: NO KNOWN ALLERGIES (Unverified , 10/09/24) Home Meds Active Scripts Ibuprofen (Ibuprofen) 600 Mg Tab, 1 TAB PO TID PRN for 7 Days, #21 TAB Prov:RENÉE EASLEY 11/13/24 Lorazepam (ATIVAN TABLET) 0.5 Mg Tb, 1 TAB PO every 5 min PRN, #30 TAB every 5 min as needed for active seizing. Max 3 doses in 15 minutes. Prov:DONTRELL ZIMMERMAN MD 10/12/24 Oxcarbazepine (Trileptal) 600 Mg Tab, 0.5 TAB PO BID, #60 TAB 1 Refill Prov:DONTRELL ZIMMERMAN MD 10/12/24 Levetiracetam (KEPPRA TABLET) 500 Mg Tb, 250 MG PO BID, #60 TAB Prov:DONTRELL ZIMMERMAN MD 10/12/24 Information Source: Patient Mode of Arrival: Ambulatory Past Medical History PAST MEDICAL HISTORY: Seizures Surgical History: Denies all surgeries Family History Family History: Reviewed,noncontributory to illness Social History Smoker: Non-Smoker Alcohol: Denies ETOH Use Drugs: Denies Drug Use Lives In: Home All Other Systems: Reviewed and Negative (SEE HPI) Physical Exam General Appearance: No Apparent Distress, Normal HEENT: Pharynx Normal Neck: Full Range of Motion, Non-Tender, Normal Respiratory: Lungs Clear, No Accessory Muscle Use, No Respiratory Distress, Normal Breath Sounds Cardiovascular: No Murmur, Normal Peripheral Pulses, Regular Rate/Rhythm Breast Exam: Deferred Gastrointestinal: Non Tender, Soft Genitalia: Deferred Pelvic: Deferred Rectal: Deferred Extremities: Normal capillary refill, Normal range of motion, Non-tender Musculoskeletal : Location: Left Extremity Location: Other (TENDERNESS PALPATED OVER POSTERIOR LATERAL 6TH AN D 7TH RIB NO NOTED ECCHYMOSIS, FLAIL CHEST ABRASIONS LESIONS OR LACERATIONS.) Apperance: Normal Neurologic: Alert, No Motor Deficits, Normal Affect, Normal Mood, No Sensory Deficits Cerebellar Function: Normal Reflexes: NOT DONE Skin: Dry, Normal Color, Warm Lymphatic: No Adenopathy Was a procedure done? Was a procedure done?: No Back Pain Differential Dx Differential Diagnosis: Fracture, Musculoskeletal Pain X-Ray, Labs, Meds, VS Vital Signs Date Time Temp Pulse Resp B/P (MAP) Pulse Ox O2 Delivery O2 Flow Rate FiO2 11/13/24 01:52 62 18 99 Room Air 11/13/24 01:52 98.5 62 18 129/83 (98) 99 98.5 11/13/24 00:32 98.5 61 18 117/79 97 98.5 X-Ray, Labs, Meds, VS Comment EXAMINATION: XY L RIB X RAY INDICATION: rib px COMPARISON: None TECHNIQUE: Frontal view of the chest and 3 views of the left ribs history FINDINGS: No focal consolidation, pleural effusion or significant pneumothorax. Normal cardiomediastinal silhouette. No displaced left rib fracture. Chronic appearing fracture of the left 6th rib posterolateral. IMPRESSION: More acute abnormality. Patient given Toradol 60 mg IM reports improvement in pain and function requesting discharge at this time. Noted chronic appearing left rib fracture. Script trial of anti-inflammatories advised to use ice. Advised no weight lifting until cleared by PCP. ER return precautions given patient indicates understanding agrees with discharge plan of care. Time of 1ST Reevaluation: 00:51 Reevaluation 1ST: Unchanged Time of 2ND Reevaluation: 01:47 Reevaluation 2ND: Improved Patient Education/Counseling: Diagnosis, Treatment, Need For Follow Up Family Education/Counseling: No Family Present SEPSIS Sepsis Screen Date sepsis recognized/suspect: Nov 13, 2024 Time Sepsis recognized/suspect: 0036 Recent Procedure: No On Antibiotic Therapy: No Respiratory Rate >20: No Heart Rate >90: No Temp<36 C (96.8 F) or >38.3 C: No SBP <90 or MAP <65 mmHG: No New Acute Mental Status Change: No Is the patient on CPAP, BIPAP,: No Physician Orders L Rib X Ray (11/13/24 00:55) Ketorolac Injection (Toradol Injection) (11/13/24 02:00) Vital Signs Date Time Temp Pulse Resp B/P (MAP) Pulse Ox O2 Delivery O2 Flow Rate FiO2 11/13/24 01:52 62 18 99 Room Air 11/13/24 01:52 98.5 62 18 129/83 (98) 99 98.5 11/13/24 00:32 98.5 61 18 117/79 97 98.5 Departure 1 Departure Time of Disposition: 01:48 Impression: Primary Impression: Fracture of left sixth rib Disposition: HOME / SELF CARE / HOMELESS Condition: Stable e-Prescriptions Ibuprofen (Ibuprofen) 600 Mg Tab 1 TAB PO TID PRN for 7 Days, #21 TAB Prov: RENÉE EASLEY 11/13/24 Discharged With: Self Critical Care Note Critical Care Time?: No Stability Stability form required: RENÉE Taveras Nov 13, 2024 01:48
[2024-11-13 01:52] VITALS: BP 129/83; PULSE 62; RESP 18; TEMP 98.5; O2SAT 99
[2024-11-13] MEDS ORDERED: IBUP-1454 PO (01:54)
[2024-11-13] MEDS: KETOROLAC TROMETH 60MG/2ML VIAL IM ONE (01:59)
== END 2024-11-13 02:05 | disposition home or self-care (01) ==
LOC: ER 00:30
DX: S22.32XA Fracture of one rib, left side, initial encounter for closed fracture (principal); Z79.899 Other long term (current) drug therapy; X58.XXXA Exposure to other specified factors, initial encounter; Y93.89 Activity, other specified; Y92.39 Other specified sports and athletic area as the place of occurrence of the external cause; Y99.8 Other external cause status
CPT/HCPCS: 71101; 96372; 99283; J1885